=== PATIENT | female | born 1935 | race Caucasian/White ===

== ENCOUNTER 2023-06-29 09:32 | Emergency (ER) | payer MEDICARE, OTHER, SELFPAY ==
[2023-06-29 09:45] VITALS: BP 143/86
--- NOTE | 2023-06-29 10:09 | ED.GENMED ---
History of Present Illness
General
Chief Complaint: Fall
Source: patient
Time Seen by Provider: 06/29/23 09:49
Travel History
Have you had any contact with someone who has COVID-19?: No
Do you have any symptoms of coronavirus? Fever > 100 degrees, chills, cough, shortness of breath, sore throat, loss of taste or smell, muscle aches, or headache?: No
History of Present Illness
History of Present Illness:
This patient is an 88-year-old female presents emergency department with complaints of pain across her lower back. She says this started about 3 days ago when she accidentally tried to sit on the bed, but missed the bed and landed on the floor. In
doing so, she did hit her head on the wall. She was able to get herself back up, and went to bed at that time. She denies loss of consciousness. Since the fall, she notes pain across her lower back that is much worse with certain movements. This
pain is nonradiating, and she denies abdominal pain, pelvic pain, leg pain, numbness, tingling, focal weakness, fever, chills, nausea, vomiting, anorexia, chest pain, neck pain, headache, dizziness. She has been using Tylenol and a heating pad with
partial relief of symptoms. She lives alone, and notes that while she was able to feed herself and go to the bathroom etc., she is experiencing great pain with activities. In addition, patient is concerned because she has not had a bowel movement
in 2 days, she typically goes daily.
Past History
Past History
ED Past Medical History: Cancer (Non-Hodgkin's lymphoma and breast cancer on chemotherapy and radiation), HTN, Hypercholesterolemia and Other (Sinusitis, NonHodgkins Lymphoma, L leg DVT, C-diff,)
ED Past Surgical History: Cardiac (Pacemaker), Gynecological (Hysterectomy) and Other (Mastectomy, pacemaker placement and removal with replacement in her right anterior chest wall, Filter in Carotids.)
Social History
Tobacco: Non-smoker
Alcohol: Daily (Wine 2 glasses or Vodka and water)
Drug: None
Personal:
Living: with family
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
Family History
Family History: Other (n/c); Negative Diabetes, Hypertension or Early CAD
Phy Exam
Physical Exam
Physical Exam:
GENERAL: Alert , in no apparent distress
EYE: pupils equal and reactive, no photophobia, no nystagmus
NECK: Supple, no significant adenopathy, no midline tenderness.
ENT: o/p clr, mmm, no signs of head or facial injury noted on exam, no jones, no raccoon.
CARDIAC: Regular rate and rhythm .
LUNGS: Clear breath sounds bilaterally, no acute respiratory distress, no wheezes/rales/rhonchi
ABDOMEN: Soft, without focal tenderness, no r/g, no cvat
NEUROLOGICAL: Alert and oriented, no focal neuro deficits, motor 5/5 ue=le, neg SLR
SKIN: Warm and dry, skin intact.
MUSCULOSKELETAL: No edema, well perfused. FROM le without hesitation
PSYCH: Normal and appropriate interaction.
BACK: no rash/bruising noted...no ttp midline except at L5/S1/Coccyx area.
Course
Orders/Labs/Results
Orders:
Orders
06/29/23 10:08
Tramadol HCl [Ultram] 50 mg PO NOW STA
Coccyx/Sacrum, 2 View CR [CR Sacrum/coccyx Min 2 View] Urgent
Comment:
Reason For Exam: fall,pain
LS Spine Complete, 4 View [CR Lumbar Spine Comp Min 4 Vw*] Urgent
Comment:
Reason For Exam: fall,pain
06/29/23 11:23
Ketorolac [Toradol] 15 mg IM NOW STA
Polyethylene Glycol Powder [Miralax] 17 grams PO NOW STA
06/29/23 11:24
Cyclobenzaprine HCl [Flexeril] 5 mg PO NOW STA
Vital Signs
Initial and Last Documented VS:
Initial Vital Signs
Temp Pulse Resp BP Pulse Ox
98.2 F 97 16 143/86 98
06/29/23 09:45 06/29/23 09:45 06/29/23 09:45 06/29/23 09:45 06/29/23 09:45
Last Documented Vital Signs
Temp Pulse Resp BP Pulse Ox
98.1 F 72 17 139/59 99
06/29/23 11:53 06/29/23 11:53 06/29/23 11:53 06/29/23 11:53 06/29/23 11:53
*Critical Care Note
Total Time (30-74mins, 75-104mins- exclusive of procedures): Not Applicable
Update Note
Update Note:
Patient presents to the Emergency Department with __back pain
Number and Complexity of Problems Addressed at the Encounter
� Chronic conditions affecting care:
� Acute Exacerbation and/or Progression of Chronic Illness:
� Differential Diagnosis includes: But not limited to muscular strain, sacral lumbar coccyx fracture, sciatica, etc.
Amount and/or Complexity of Data to be Reviewed and Analyzed
� I performed an independent evaluation of and my interpretation is:
EKG:
CT:
Xrays:Somewhat limited evaluation as a result of some diffuse osteopenia.
Likely levoscoliosis of the lumbar spine.
Mild L1 superior endplate irregularity which is age indeterminate but may represent an old injury.
Limited evaluation of the sacrum/coccyx particularly on AP view, without findings on lateral view to suggest cortical fracture.
Laboratory Studies:
Other:
� Review of other/old records reveals:
� Clinical information was obtained by an independent historian: Friend who is at bedside
� Prescriptions/Medications Considered but not given:
� Further testing considered but not performed: Of note, patient denies anticoagulant use and head strike was 3 days ago without symptoms at this time, therefore head CT deferred low likelihood of intracranial injury
Risk of Complications and/or Morbidity or Mortality of Patient Management
� Social determinants of health affecting care:
� Discussion with other providers (PCP, Hospitalists, Consultants, etc):
� Escalation of care including admission/observation vs risk of discharge considered: 12:19 PM patient feels better although not completely pain-free. No acute fracture noted on x-ray, patient aware of potential old injury. Her
and support person at bedside aware of plan to discharge with pain medication and follow-up. Also aware reasons return to the ER. Patient does not present with signs or symptoms to suggest acute vascular injury, neurologic injury, etc. She also
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 I prescribed naproxen very cautiously and limited
ED Attending Note
-
Portions of this chart may have been created with voice recognition software.� Occasional wrong word or��sound alike� substitutions may have occurred due to the inherent limitations of voice recognition software.
Discharge Plan
Departure
Patient Disposition: Home (Routine Discharge)
Date of Disposition: 06/29/23
Time of Disposition: 12:16
Patient with high blood pressure during this ER visit?: Yes
Condition: Good
Discharge Problem:
Back pain
Instructions: Back Pain, BLOOD PRESSURE
Prescriptions:
New
cyclobenzaprine 5 mg tablet
5 mg PO BID PRN (Reason: muscle spasm) Qty: 13 0RF
polyethylene glycol 3350 [Miralax] 17 gram powder in packet
17 g PO DAILY Qty: 30 0RF
naproxen 250 mg tablet
250 mg PO BID PRN (Reason: Pain) Qty: 13 0RF
No Action
verapamil 240 mg tablet extended release
240 mg PO DAILY
Referrals:
Debbie Ramirez MD [Family Provider] - Follow up in 2-3 days
Activity Restrictions/Additional Instructions:
IF YOU DEVELOP INCONTINENCE, NUMBNESS, WEAKNESS, FEVER, INCREASING NEW OR WORSENING PAIN, ABDOMINAL PAIN, VOMITING, SWELLING, OR OTHER WORRISOME SIGNS, PLEASE RETURN TO THE ER IMMEDIATELY.
Interventions
Interventions:
*Risk Screen - Suicide Last Done: 06/29/23 09:45
*General Assessment Last Done: 06/29/23 09:45
*Neglect/Abuse Screening Last Done: 06/29/23 09:45
[2023-06-29] MEDS: ULTRAM 50 MG PO (10:15)
[2023-06-29 11:53] VITALS: BP 139/59
[2023-06-29] MEDS: MIRALAX 17 GRAMS PO (11:57)
[2023-06-29] MEDS: FLEXERIL 5 MG PO (11:57)
[2023-06-29] MEDS: TORADOL 15 MG IM (11:57)
== END 2023-06-29 12:58 | disposition home or self-care (01) ==
LOC: EMR 09:32
PROVIDERS: EMERGENCY PHYSICIAN Emergency Medicine; FAMILY PHYSICIAN Family Medicine
DX: M54.9 Dorsalgia, unspecified (principal); W19.XXXA Unspecified fall, initial encounter; I10 Essential (primary) hypertension; Z95.0 Presence of cardiac pacemaker
CPT/HCPCS: 99284; 96372; 72110; 72220

== ENCOUNTER → 2023-08-14 12:44 | Outpatient (REF) | payer MEDICARE, OTHER, SELFPAY | LOC: WDC 12:44 | PROVIDERS: ATTENDING PHYSICIAN Nurse Practitioner Adult Health; FAMILY PHYSICIAN Family Medicine | DX: Z12.31 Encounter for screening mammogram for malignant neoplasm of breast (principal) | CPT/HCPCS: 77063; 77067 ==

== ENCOUNTER 2023-09-04 08:46 | Outpatient (RCR) | payer MEDICARE, OTHER, SELFPAY | END 2023-09-04 23:59 | disposition home or self-care (01) | LOC: RPT 08:46 | PROVIDERS: ATTENDING PHYSICIAN Family Medicine | DX: M54.59 Other low back pain (principal); Z73.6 Limitation of activities due to disability | CPT/HCPCS: 97112; 97162 ==

== ENCOUNTER 2023-09-28 14:13 | Outpatient (RCR) | payer MEDICARE, OTHER, SELFPAY | END 2023-09-28 23:59 | disposition home or self-care (01) | LOC: RPT 14:13 | PROVIDERS: ATTENDING PHYSICIAN Family Medicine | DX: M54.59 Other low back pain (principal); Z73.6 Limitation of activities due to disability; R26.2 Difficulty in walking, not elsewhere classified; R20.2 Paresthesia of skin | CPT/HCPCS: 97110; 97112; 97535 ==

== ENCOUNTER → 2023-12-01 10:17 | Outpatient (REF) | payer MEDICARE, OTHER, SELFPAY | LOC: RAD 10:17 | PROVIDERS: ATTENDING PHYSICIAN Family Medicine | DX: R41.82 Altered mental status, unspecified (principal); R41.3 Other amnesia; M54.50 Low back pain, unspecified | CPT/HCPCS: 70450; 72110 ==

== ENCOUNTER → 2025-01-22 12:40 | Outpatient (REF) | payer MEDICARE, OTHER, SELFPAY ==
[2025-01-22 13:17] LABS: Hematocrit 39.9 % (37.0-47.0); Hemoglobin 14.2 g/dL (12.0-16.0); Mean Corp Hgb Conc. 35.6 g/dL (33.0-37.0); Mean Corpuscular Volume 94.8 fL (81.0-99.0); Nucleated Red Blood Cells % 0 %; Platelet Count 210 10^3/uL (130-400); Red Cell Dist. Width 12.5 % (11.5-14.5)
[2025-01-22 13:42] LABS: ALT (SGPT) 18 U/L (0-35); AST (SGOT) 23 U/L (14-36); Albumin 4.5 g/dl (3.5-5.0); Alkaline Phosphatase 58 U/L (38-126); Blood Urea Nitrogen 21 mg/dl (7-17); Calcium 9.9 mg/dl (8.4-10.2); Carbon Dioxide 28 mmol/L (22-30); Chloride 105 mmol/L (98-107); Glucose 130 mg/dl (70-99); Potassium 3.7 mmol/L (3.5-5.1); Sodium 140 mmol/L (135-145); Total Protein 7.3 g/dl (6.3-8.2); eGFR 48.33
== END ==
LOC: SDSPAT 12:40
PROVIDERS: ATTENDING PHYSICIAN Internal Medicine Cardiovascular Disease; FAMILY PHYSICIAN Family Medicine
DX: I44.2 Atrioventricular block, complete (principal)
CPT/HCPCS: 36415; 80053; 85025; 93005

== ENCOUNTER → 2025-02-04 13:50 | Outpatient (REF) | payer MEDICARE, OTHER, SELFPAY | LOC: RCS 13:50 | PROVIDERS: ATTENDING PHYSICIAN Internal Medicine Cardiovascular Disease; FAMILY PHYSICIAN Family Medicine | DX: Z95.0 Presence of cardiac pacemaker (principal); I44.2 Atrioventricular block, complete; I10 Essential (primary) hypertension; I49.5 Sick sinus syndrome; I44.30 Unspecified atrioventricular block; I34.0 Nonrheumatic mitral (valve) insufficiency | CPT/HCPCS: 93306 ==

== ENCOUNTER 2025-02-06 06:26 | Day surgery (SDC) | payer MEDICARE, OTHER, SELFPAY ==
[2025-01-22 13:03] VITALS: BMI 19.6
[2025-02-06] VITALS (8 sets, daily range): BP systolic 93–150; BP diastolic 67–112
[2025-02-06] MEDS: NSS 500 IV (07:08)
--- NOTE | 2025-02-06 11:47 | ITS.CL.PACE ---
[employer] - Pacemaker Implant
Pacemaker Implant
Procedure Report:
Date of Procedure: February 06, 2025.
Procedures: Dual chamber pacemaker generator change. Pacemaker pulse generator explantation and pacemaker pulse generator implantation.
Indication: Pacemaker at [facility] from natural battery depletion. 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 The patient is pacemaker dependent.
Performing physician: Tadeo Melara MD, [facility].
Implant: Pacemaker Pulse Generator: [employer] Model# [id number]; Serial# [id number].
Retained Leads (implanted 04/29/2992):
RA Lead: [employer]; Model# 4058M; Serial# [id number].
RV Lead: [employer]; Model# 4058M; Serial# [id number].
Retained Lead Extenders (implanted 06/27/2016)
RA Lead Joint Finisher: [employer]; Model# [id number]; Serial# [id number].
RV Lead Joint Finisher: [employer]; Model# [id number]; Serial# [id number].
Explanted Pacemaker Pulse Generator (implanted 06/27/2016): Pulse Generator: [employer]; Model# [id number]; Serial# [id number].
Technique: A time out was performed. The procedure site was identified. The patient was anesthetized by the anesthesia service. Preoperative cefazolin was administered before the skin incision. The patient was prepped and draped in the usual
fashion. Local anesthetic was applied to the left prepectoral subcutaneous tissue. A 3 inch incision was made over the pulse generator with the PlasmaBlade. The capsule was entered with PlasmaBlade cautery. The old pacemaker pulse generator was
explanted. No cautery was applied to the lead system. The leads were appropriately attached to the new device. The most proximal portion of the atrial lead just at the transition from the extra insulation to the normal insulation had an area of wear
but no eros break in the insulation was identified. For caution sake a [employer] lead repair kit reference 6946, Lot #[id number] was used with medical adhesive to reinforce that site. Standard technique was employed. The pocket was irrigated with
antibiotic solution. Hemostasis was excellent. The device and leads were placed in the pocket. A [employer], TYRX Absorbable Antibacterial Envelope was placed in the pocket, (Ref [id number]; Lot [id number]). The incision was closed in three layers with
absorbable suture. Steri-strips and a silver impregnated dressing were applied. The estimated blood loss was less than 3 mL. There were no complications. No fluoroscopy.
Lead Analysis:
RA lead: P: 1.8 mV; Threshold: 1 V @ 0.7 ms; Impedance: 2500 ohms (stable).
RV lead: R: none; Threshold: 1,25 V @ 0.4 ms; Impedance: 390 ohms.
Final Programming: DDDR 60 - 120 bpm.
Conclusion:
1. Uncomplicated [employer] pacemaker change.
2. The pacemaker system is not MRI conditional.
3. 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
Recommendation: Routine post pacemaker care.
cc: Marbin Zurita DO and Maria Alejandra Galeas
== END 2025-02-06 10:00 | disposition home or self-care (01) ==
LOC: CATH 06:26
PROVIDERS: ATTENDING PHYSICIAN Internal Medicine Cardiovascular Disease; FAMILY PHYSICIAN Family Medicine
DX: Z45.010 Encounter for checking and testing of cardiac pacemaker pulse generator [battery] (principal); I44.2 Atrioventricular block, complete; I10 Essential (primary) hypertension; Z85.3 Personal history of malignant neoplasm of breast; Z90.12 Acquired absence of left breast and nipple; Z92.21 Personal history of antineoplastic chemotherapy; M85.80 Other specified disorders of bone density and structure, unspecified site; R41.89 Other symptoms and signs involving cognitive functions and awareness; Z86.19 Personal history of other infectious and parasitic diseases; Z86.718 Personal history of other venous thrombosis and embolism
CPT/HCPCS: 33228; C1785